=== PATIENT | male | born 1980 | race Caucasian/White ===

== ENCOUNTER 2022-02-02 12:27 | Emergency (ER) | payer OTHER, SELFPAY ==
--- NOTE | 2022-02-02 12:36 | ED.SKABFB ---
HPI - Skin/Abscess/Foreign Bdy General Chief complaint: Skin/Abscess/Foreign Body Stated complaint: Insect bite on left thigh Time Seen by Provider: 02/02/22 12:36 Source: patient and RN notes reviewed History of Present Illness HPI narrative: Patient is a 41-year-old male who presents the urgent care with complaints of an insect bite to the left thigh. Patient states that approximately 4 AM this morning he woke up to a staying on his left leg. Patient states that he went back to bed and woke up for a run, noticing a bruise to the leg. Patient states he started to feel bad while driving into work at 7:30 AM. Patient has had chills and sweats. Denies of any use of [id number] medication. Denies of any upper respiratory complaints. Patient has not taken his temperature but does report of subjective fever. States that he has had a bout of nausea but denies of vomiting. No other acute complaints. No acute distress noted. Patient aware of the plan of care. Some parts of this dictation were generated by voice recognition software and may contain typographical and/or grammatical inaccuracies. Related Data Allergies Allergy/AdvReac Type Severity Reaction Status Date / Time No Known Allergies Allergy Mild Verified 01/20/17 09:53 Review of Systems Review of Systems: CONSTITUTIONAL: Reports of chills and sweats with subjective fever EYES: Denies visual changes, redness, or discharge. ENT: Denies rhinorrhea, congestion, sore throat, or otalgia. CARDIOVASCULAR: Denies chest pain, palpitations, or edema. RESPIRATORY: Denies cough or dyspnea. GASTROINTESTINAL: Reports of nausea without vomiting, abdominal pain or diarrhea GENITOURINARY: Denies dysuria or hematuria. SKIN: Reports of a possible insect bite to the left leg MUSCULOSKELETAL: Denies back pain, joint pain, or myalgia. NEUROLOGIC: Denies headache, numbness, or weakness. All other systems reviewed are negative, except as documented in HPI. [facility] Family History Family History (Updated 07/04/14 @ 07:13 by DOCTOR UNKNOWN) Father Hypertension Other Family history of lung cancer Social History Social History Smoking status: Never smoker Alcohol intake: current Comments At the time of my signature, I reviewed and agree with the nursing past medical, surgical, social, and family history. There is no relevant family history pertinent to the patient complaint. Exam Narrative: GENERAL: This is a well-nourished, well-developed patient, in no apparent distress. HEAD: normocephalic, atraumatic. EYES: PERRL. Sclera clear/white. Vision is grossly intact. EARS: External ears normal NOSE: External nose normal with no obvious nasal discharge, nares without redness, clear rhinorrhea. THROAT: Mucous membranes moist NECK: Neck supple CARDIOVASCULAR: Regular rate and rhythm without murmurs, gallops, or rubs. RESPIRATORY: Clear to auscultation. Breath sounds equal bilaterally. No wheezes, rales, or rhonchi. SKIN: 5 x 5 cm of erythema to the medial left upper thigh with 3 cm ecchymotic center with mild tenderness/firmness NEURO: awake, alert, and oriented to person, place and time. There were no obvious focal neurologic abnormalities. EXTREMITIES: No clubbing, cyanosis, or edema. Course Course Level of Care: Express Care Visit Vital Signs Vital signs: Vital Signs Temperature 100.4 F H 02/02/22 12:47 Pulse Rate 98 02/02/22 12:47 Respiratory Rate 16 02/02/22 12:47 Blood Pressure 161/92 H 02/02/22 12:47 Pulse Oximetry 100 02/02/22 12:47 Temperature 100.4 F H 02/02/22 12:47 Pulse Rate 98 02/02/22 12:47 Respiratory Rate 16 02/02/22 12:47 Blood Pressure 161/92 H 02/02/22 12:47 Pulse Oximetry 100 02/02/22 12:47 Reviewed-patient is informed that they may have pre-hypertension or hypertension based on a blood pressure reading in the department. I recommend the patient call the primary care provider listed on their discharge instructions or a
[2022-02-02 12:47] VITALS: BP 161/92; PULSE 98; RESP 16; TEMP 38; O2SAT 100
== END 2022-02-02 13:02 | disposition home or self-care (01) ==
PROVIDERS: Emergency Provider Nurse Practitioner Family
DX: S70.362A Insect bite (nonvenomous), left thigh, initial encounter (principal); W57.XXXA Bitten or stung by nonvenomous insect and other nonvenomous arthropods, initial encounter
CPT/HCPCS: 87804; 99203; G0463